=== PATIENT | male | born 1965 | race Asian ===

== ENCOUNTER 2020-03-27 01:06 | Emergency (ER) | payer OTHER ==
[~2020-03-27] VITALS: Ht 180.3 cm; Wt 72.6 kg
[2020-03-27 02:34] LABS: BASOPHIL % 0.6 % (0-2); PLATELET COUNT 289 x10^3mcL (130-400); RED CELL DISTRIBUTION WIDTH 12.8 % (11.5-14.5)
[2020-03-27 02:35] LABS: CALCIUM 9.3 mg/dL (8.5-10.1); CARBON DIOXIDE 25.1 mmol/L (21-32); CHLORIDE SERUM 100 mmol/L (98-107); CREATININE SERUM 1.2 mg/dL (0.7-1.3); GFR1 > 60 mL/min; GLUCOSE SERUM 241 mg/dL (74-106); SODIUM SERUM 136 mmol/L (136-145)
[2020-03-27 02:38] LABS: ALBUMIN 4.1 g/dL (3.4-5.0); ALKALINE PHOSPHATASE 69 U/L (46-116); ALT/SGPT 56 U/L (16-63); AMYLASE 50 U/L (25-115); AST/SGOT 33 U/L (15-37); BILIRUBIN TOTAL 0.3 mg/dL (0.20-1.00); LIPASE 169 IU/L (73-393); TOTAL PROTEIN, SERUM 7.7 g/dL (6.4-8.2)
[2020-03-27 03:36] LABS: microscopic required? NO
[2020-03-27 05:02] LABS: UA SPECIFIC GRAVITY 1.025 (1.005-1.035); urine erythrocyte NEGATIVE (NEGATIVE)
[2020-03-27 05:04] VITALS: Ht 180.3 cm; Wt 72.6 kg
[2020-03-27 05:39] VITALS: BP 122/69
== END 2020-03-27 05:39 | disposition home or self-care (01) ==
LOC: ED 01:06
PROVIDERS: Student in an Organized Health Care Education/Training Program
DX: K80.50 Calculus of bile duct without cholangitis or cholecystitis without obstruction (principal); N23 Unspecified renal colic; K29.70 Gastritis, unspecified, without bleeding; Z87.442 Personal history of urinary calculi
CPT/HCPCS: J1885; J2405; J7030; Q0092